=== PATIENT | male | born 1955 | race Caucasian/White ===

== ENCOUNTER → 2019-01-12 | Outpatient (CLI) | payer OTHER ==
--- NOTE | 2019-01-12 12:19 | PCVCIMAG ---
APPROVED REPORT Study performed: 01/12/2019 11:30:55 EXAM: Comprehensive 2D, Doppler, and color-flow Echocardiogram Patient Location: Echo lab Status: routine BSA: 2.13 HR: 72 bpmBP: 136/76 mmHg Rhythm: Atrial Fibrillation Other Information Study Quality: Adequate Risk Factors: Cardiac Risk Factors: Hyperlipidemia Indications Atrial Fibrillation 2D Dimensions IVSd: 10.29 (7-11mm) LVDd: 53.96 mm PWd: 9.70 (7-11mm)Ascending Ao: 32.50 (22-36mm) LVDs: 43.11 (25-40mm) Left Atrium: 48.83 (27-40mm) Aortic Root: 32.84 mm LV Single Plane 4CH: 49.88 % LV Single Plane 2CH: 47.61 % Biplane EF: 48.9 % Volumes Left Atrial Volume (Systole) Single Plane 4CH: 98.70 mLSingle Plane 2CH: 96.51 mL LA ESV Index: 48.00 mL/m2 Aortic Valve AoV Peak Haider.: 1.08 m/s AO Peak Gr.: 4.72 mmHgLVOT Max P.01 mmHg LVOT Max V: 0.71 m/s Pulmonary Valve PV Peak Haider.: 0.92 m/sPV Peak Gr.: 3.38 mmHg Tricuspid Valve TR Peak Haider.: 2.70 m/s TR Peak Gr.: 29.08 mmHg Left Ventricle The left ventricle is normal size. There is normal LV segmental wall motion. There is normal left ventricular wall thickness. Left ventricular systolic function is at the lower limits of normal. LVEF 50%. This study is not technically sufficient to allow evaluation of the LV diastolic function due to atrial fibrillation. Right Ventricle The right ventricle is normal size. The right ventricular systolic function is normal. Atria Left atrium is severely dilated. Right atrium is severely dilated. Aortic Valve The aortic valve is normal in structure. No aortic regurgitation is present. There is no aortic valvular stenosis. Mitral Valve The mitral valve is normal in structure. Mild mitral regurgitation. No evidence of mitral valve stenosis. Tricuspid Valve The tricuspid valve is normal in structure. Moderate tricuspid regurgitation with PAP of 35 mmHg. Pulmonic Valve The pulmonary valve is normal in structure. Trace pulmonic regurgitation. Great Vessels The aortic root is normal in size. IVC is normal in size and collapses >50% with inspiration. Pericardium There is no pericardial effusion. There is no pleural effusion. <Conclusion> Left ventricular systolic function is at the lower limits of normal. There is normal LV segmental wall motion. LVEF 50%. Both atria are severely dilated. The aortic valve is normal in structure. No aortic regurgitation or stenosis The mitral valve is normal in structure. Mild mitral regurgitation. Moderate tricuspid regurgitation with of 35 mmHg. There is no pericardial effusion.
== END | disposition home or self-care (01) ==
LOC: PCVCIMAG 12:45
PROVIDERS: ATTEND Internal Medicine
DX: I08.1 Rheumatic disorders of both mitral and tricuspid valves (principal); I48.91 Unspecified atrial fibrillation
CPT/HCPCS: 93306